=== PATIENT | male | born 1980 | race Caucasian/White ===

== ENCOUNTER 2023-12-24 16:50 | Emergency (ER) | payer OTHER ==
[2023-12-24] MEDS ORDERED: Lidocaine 1% 5 ML VIAL INJECT ONE (17:14)
[2023-12-24] MEDS: Lidocaine 1% 20 ML MDV ONE (17:15)
[2023-12-24] MEDS: Bacitracin/Neomycin/Polymyxin B Oint 0.9 GM U/D Packet TOP ONE (17:35)
[2023-12-24] MEDS: Doxycycline Monohydrate 100 MG Cap PO ONE (17:47)
== END 2023-12-24 18:00 | disposition home or self-care (01) ==
LOC: KA.ED 16:50
DX: S51.812A Laceration without foreign body of left forearm, initial encounter (principal); Z79.84 Long term (current) use of oral hypoglycemic drugs; Z79.899 Other long term (current) drug therapy; W29.8XXA Contact with other powered hand tools and household machinery, initial encounter
CPT/HCPCS: 12004; 99282; A9270-GY; J3490